=== PATIENT | female | born 1960 | race Caucasian/White ===

== ENCOUNTER → 2020-04-30 13:58 | Outpatient (CLI) | payer OTHER, SELFPAY ==
--- NOTE | ~2020-04-30 | MM_ITS ---
EXAMINATION: MM screening ben BI w maco HISTORY: Screening mammogram TECHNIQUE: Craniocaudal and mediolateral oblique 3-D tomosynthesis images were obtained and synthetic 2-D images were generated. CAD analysis was submitted and interpreted. COMPARISON: 02/07/2019, 12/28/2017, 12/23/2016 bilateral digital screening mammogram examinations 08/16/2013 diagnostic left digital mammogram and left breast ultrasound 08/09/2013 bilateral digital scr eening mammogram BREAST PARENCHYMAL COMPOSITION: The breasts are extremely dense, which lowers the sensitivity of mamm ography. FINDINGS: Stable mild granular asymmetry with convex to the at the upper anterior left fibroglandular margin on MLO view, stable since 08/16/2013, at which time the left diagnostic mammogram and ultrasoun d revealed no abnormality. There is no evidence of suspicious mass, calcification, or architectural d istortion to suggest malignancy in either breast. There has been no suspicious interval change. IMPRESSION: 1. No mammographic evidence of malignancy. 2. Recommend routine screening mammography in one year. BI-RADS Category 1: Negative Reviewed, dictated and finalized at location A. K SECRETARY
== END ==
PROVIDERS: Visit Provider Nurse Practitioner Obstetrics & Gynecology
DX: Z12.31 Encounter for screening mammogram for malignant neoplasm of breast (principal)
CPT/HCPCS: 77063; 77067

== ENCOUNTER → 2021-05-06 12:14 | Outpatient (CLI) | payer OTHER, SELFPAY ==
--- NOTE | ~2021-05-06 | DEXA_ITS ---
Bone Density Report Name: RAVINDER MASON Age: 61 Sex: Female Ethnicity: White Date of : 1960 Indication: osteopenia; prior fracture; postmenopausal Referring Provider: Meenu, Nancy Villagomez Study: Bone densitometry was performed. Exam Date: May 06, 2021 Accession number: [id number] Bone Density: Region BMD T-score Z-score Classification AP Spine (L1-L4) 0.736 -2.8 -1.5 Osteoporosis Femoral Neck (Left) 0.557 -2.6 -1.4 Osteoporosis Total Hip (Left) 0.697 -2.0 -1.1 Osteopenia Femoral Neck (Right) 0.528 -2.9 -1.6 Osteoporosis Total Hip (Right) 0.695 -2.0 -1.1 Osteopenia Total Hip Mean 0.696 -2.0 -1.1 Osteopenia World Health Organization criteria for BMD impression classify patients as: Normal (T-score at or above -1.0), Osteopenia (T-score between -1.0 and -2.5), or Osteoporosis (T-score at or below -2.5). 10-year Fracture Risk: FRAX not reported because: Some T-score for Spine Total or Hip Total or Femoral Neck at or below -2.5 Previous Exams: Region Exam Age BMD T-score BMD Change BMD Change Date g/cm2 vs Baseline vs Previous AP Spine(L1-L4) 05/06/2021 61 0.736 -2.8 -0.076* -0.076* 08/09/2013 53 0.813 -2.1 Total Hip(Left) 05/06/2021 61 0.697 -2.0 -0.057* -0.057* 08/09/2013 53 0.755 -1.5 Total Hip(Right) 05/06/2021 61 0.695 -2.0 -0.068* -0.068* 08/09/2013 53 0.763 -1.5 *Denotes significance at 95% confidence level, LSC for AP Spine = 0.022 g/cm2, LSC for Total Hip = 0.027 g/cm2 Clinical Information Provided by Patient: Has had a low trauma fracture Has used the following medications: Calcium, MTV Patient maximum height was 64 Menopause Age: 51 Drinks caffeinated beverages Onset of menses at age 17 Number of children 2 Impression: The patient has established osteoporosis, based on the Right Femoral Neck T-score and the existence of a prior fracture. The patient has risk factors, including: previous fracture. The BMD for the AP Spine(L1-L4) decreased, changing by -0.076 since the last DXA exam. The BMD for the Total Hip(Left) decreased, changing by -0.057 since the last DXA exam. The BMD for the Total Hip(Right) decreased, changing by -0.068 since the last DXA exam. Discussion: HIGH RISK OF FRACTURE. BONE DENSITY IS UNDESIRABLY LOW AT ONE OR MORE SKELETAL SITES, CONSISTENT WITH POSTMENOPAUSAL OSTEOPOROSIS. This patient's lowest T-score, in a patient who has previously fractured,
== END ==
PROVIDERS: Visit Provider Nurse Practitioner Obstetrics & Gynecology
DX: M81.0 Age-related osteoporosis without current pathological fracture (principal)
CPT/HCPCS: 77080

== ENCOUNTER → 2021-07-01 10:34 | Outpatient (CLI) | payer OTHER, SELFPAY ==
--- NOTE | ~2021-07-01 | MM_ITS ---
EXAMINATION: MM screening ben BI w maco HISTORY: Screening mammogram TECHNIQUE: Craniocaudal and mediolateral oblique 3-D tomosynthesis images were obtained and synthetic 2-D images were generated. CAD analysis was submitted and interpreted. COMPARISON: 04/30/2020, 02/07/2019, 12/28/2017, 12/23/2016 bilateral screening mammogram examinations 08/16/2013 diagnostic left mammogram and left breast ultrasound BREAST PARENCHYMAL COMPOSITION: The breasts are extremely dense, which lowers the sensitivity of mamm ography. FINDINGS: Stable approximately 9 mm convex density at the anterior fibroglandular margin in the upper left breast on MLO view, stable since 12/23/2016 and 08/16/2013, consistent with benign process. There is no evidence of suspicious mass, calcification, or architectural distortion to suggest malignancy i n either breast. There has been no suspicious interval change. IMPRESSION: 1. No mammographic evidence of malignancy. 2. Recommend routine screening mammography in one year. BI-RADS Category 2: Benign finding(s). Reviewed, dictated and finalized at location A.
== END ==
PROVIDERS: Visit Provider Nurse Practitioner Obstetrics & Gynecology
DX: Z12.31 Encounter for screening mammogram for malignant neoplasm of breast (principal)
CPT/HCPCS: 77063; 77067

== ENCOUNTER 2022-10-14 09:03 | Outpatient (CLI) | payer OTHER, SELFPAY ==
--- NOTE | 2022-10-14 11:15 | NEURO_ITS ---
Impression: # Complains of numbness of both lower extremities. # Normal Nerve Conduction Study. # Normal needle/EMG. # Clinical correlation recommended. Nerve Conduction Studies Anti Sensory Summary Table Stim Site NR Peak (ms) P-T Amp (?V) Site1 Site2 Delta-P (ms) Dist (cm) Des (m/s) Left Sup Fibular Anti Sensory (Ant Lat Mall) 14 cm 3.3 22.6 14 cm Ant Lat Mall 3.3 16.0 48 Right Sup Fibular Anti Sensory (Ant Lat Mall) 14 cm 3.6 11.8 14 cm Ant Lat Mall 3.6 16.0 44 Left Sural Anti Sensory (Lat Mall) Calf 3.8 22.2 Calf Lat Mall 3.8 16.0 42 Right Sural Anti Sensory (Lat Mall) Calf 3.3 7.7 Calf Lat Mall 3.3 16.0 48 Motor Summary Table Stim Site NR Onset (ms) O-P Amp (mV) Site1 Site2 Delta-0 (ms) Dist (cm) Des (m/s) Left Peroneal Motor (Vastus Med) Ankle 4.3 1.2 Popit Ankle 8.8 43.0 49 Popit 13.1 0.7 Right Peroneal Motor (Vastus Med) Ankle 4.5 2.0 Popit Ankle 6.7 37.0 55 Popit 11.2 1.9 Left Tibial Motor (Abd Shin Brev) Ankle 4.7 11.0 Knee Ankle 8.4 41.0 49 Knee 13.1 7.8 Right Tibial Motor (Abd Shin Brev) Ankle 4.8 7.3 Knee Ankle 8.6 40.0 47 Knee 13.4 5.3 F Wave Studies NR F-Lat (ms) L-R F-Lat (ms) Left Peroneal (Mrkrs) (EDB) 46.72 0.00 Right Peroneal (Mrkrs) (EDB) 46.72 0.00 Left Tibial (Mrkrs) (Abd Hallucis) 46.64 0.55 Right Tibial (Mrkrs) (Abd Hallucis) 47.20 0.55 EMG Side Muscle Nerve Root Ins Act Fibs Amp Dur Recrt Comment Right AntTibialis Dp Br Fibular L4-5 Nml Nml Nml Nml Nml Right Gastroc Tibial S1-2 Nml Nml Nml Nml Nml Right Fibularis Long Sup Br Fibular L5-S1 Nml Nml Nml Nml Nml Right Flex Dig Long Tibial L5-S2 Nml Nml Nml Nml Nml Right Ext Dig Brev Dp Br Fibular L5, S1 Nml Nml Nml Nml Nml Left AntTibialis Dp Br Fibular L4-5 Nml Nml Nml Nml Nml Left Gastroc Tibial S1-2 Nml Nml Nml Nml Nml Left Fibularis Long Sup Br Fibular L5-S1 Nml Nml Nml Nml Nml Left Flex Dig Long Tibial L5-S2 Nml Nml Nml Nml Nml Left Ext Dig Brev Dp Br Fibular L5, S1 Nml Nml Nml Nml Nml MTDD
== END 2022-10-14 09:04 | disposition home or self-care (01) ==
PROVIDERS: PCP Nurse Practitioner Family; Referring Provider Chiropractor; Visit Provider Nurse Practitioner Family
DX: R20.2 Paresthesia of skin (principal)
CPT/HCPCS: 95886; 95910

== ENCOUNTER → 2022-10-19 16:01 | Outpatient (CLI) | payer OTHER, SELFPAY ==
--- NOTE | ~2022-10-19 | MM_ITS ---
EXAMINATION: MM screening ben BI w maco HISTORY: Screening mammogram TECHNIQUE: Craniocaudal and mediolateral oblique 3-D tomosynthesis images were obtained and synthetic 2-D images were generated. CAD analysis was submitted and interpreted. COMPARISON: 07/01/2021, 04/30/2020, 02/07/2019 bilateral screening mammogram examinations BREAST PARENCHYMAL COMPOSITION: The breasts are extremely dense, which lowers the sensitivity of mamm ography. FINDINGS: There is no evidence of suspicious mass, calcification, or architectural distortion to sugg est malignancy in either breast. There has been no suspicious interval change. IMPRESSION: 1. No mammographic evidence of malignancy. 2. Recommend routine screening mammography in one year. BI-RADS Category 1: Negative Reviewed, dictated and finalized at location A.
== END ==
PROVIDERS: PCP Nurse Practitioner Obstetrics & Gynecology; Visit Provider Nurse Practitioner Obstetrics & Gynecology
DX: Z12.31 Encounter for screening mammogram for malignant neoplasm of breast (principal)
CPT/HCPCS: 77063; 77067

== ENCOUNTER 2023-12-03 15:20 | Outpatient (CLI) | payer OTHER, SELFPAY ==
--- NOTE | ~2023-12-03 | MM_ITS ---
EXAMINATION: MM screening ben BI w maco HISTORY: Screening TECHNIQUE: Craniocaudal and mediolateral oblique 3-D tomosynthesis images were obtained and synthetic 2-D images were generated. CAD analysis was submitted and interpreted. COMPARISON: Comparison to multiple prior studies sequentially, with oldest reviewed study dated 12/23. BREAST PARENCHYMAL COMPOSITION: Dense: The breasts are extremely dense, which lowers the sensitivity of mammography. FINDINGS: There is no evidence of suspicious mass, calcification, or architectural distortion to sugg est malignancy in either breast. There has been no suspicious interval change. IMPRESSION: 1. No mammographic evidence of malignancy. 2. Recommend routine screening mammography in one year. BI-RADS Category 1: Negative Reviewed, dictated and finalized at location B.
== END 2023-12-03 15:21 ==
PROVIDERS: PCP Nurse Practitioner; Visit Provider Nurse Practitioner
DX: Z12.31 Encounter for screening mammogram for malignant neoplasm of breast (principal)
CPT/HCPCS: 77063; 77067

== ENCOUNTER 2024-03-06 12:38 | Outpatient (CLI) | payer OTHER, SELFPAY ==
--- NOTE | ~2024-03-06 | DEXA_ITS ---
Bone Density Report Name: RAVINDER MASON Age: 64 Sex: Female Ethnicity: White Date of : 1960 Indication: postmenopausal; screening for osteoporosis; parental hip fracture; Referring Provider: SHARON, CARL Moreno Study: Bone densitometry was performed. Exam Date: March 06, 2024 Accession number: [id number] Bone Density: Region BMD T-score Z-score Classification AP Spine(L1-L4) 0.727 -2.9 -1.4 Osteoporosis Femoral Neck (Left) 0.561 -2.6 -1.2 Osteoporosis Total Hip (Left) 0.679 -2.2 -1.1 Osteopenia Femoral Neck (Right) 0.462 -3.5 -2.1 Osteoporosis Total Hip (Right) 0.614 -2.7 -1.6 Osteoporosis Total Hip Mean 0.647 -2.5 -1.4 Osteopenia World Health Organization criteria for BMD impression classify patients as: Normal (T-score at or above -1.0), Osteopenia (T-score between -1.0 and -2.5), or Osteoporosis (T-score at or below -2.5). 10-year Fracture Risk: FRAX not reported because: Some T-score for Spine Total or Hip Total or Femoral Neck at or below -2.5 Clinical Information Provided by Patient: Parent has had a hip fracture Patient maximum height was 64 Drinks caffeinated beverages Onset of menses at age 16 Number of children 2 Impression: The patient has osteoporosis, based on the Right Femoral Neck T-score. The patient has risk factors, including: parental hip fracture. Discussion: HIGH RISK OF FRACTURE. BONE DENSITY IS UNDESIRABLY LOW AT ONE OR MORE SKELETAL SITES, CONSISTENT WITH OSTEOPOROSIS. ALSO, BONE DENSITY IS LOWER THAN EXPECTED FOR AGE AND SEX AT ONE OR MORE SKELETAL SITES; RECOMMEND A DILIGENT SEARCH FOR SECONDARY CAUSES OF BONE LOSS. This patient's lowest T-score meets the World Health Organization's (WHO) criteria for osteoporosis at one or more sites (T-score -2.5 or below). In untreated patients, the risk of osteoporotic fracture increases approximately two-fold for each 1.0 SD decrease in T-score. Low bone density is not the only risk factor for fracture; also consider factors such as patient's age, frailty or poor health, risk of falling, risk of injury, previous osteoporotic fracture, family history of osteoporosis, cigarette smoking, low body weight, etc. Not everyone with low bone mineral density has osteoporosis; osteomalacia and other metabolic bone disorders should also be considered. Patients who have osteoporosis should be evaluated for specific diseases and conditions (secondary causes) that may cause or contribute to bone loss. The [place] [employer] (AACE) and National Osteoporosis Foundation (NOF) recommend pharmacologic intervention for all postmenopausal women whose T-score is in this range. Also, this patient's bone mineral density is below the range considered normal for healthy age-, sex-, and race-matched controls at least one site (Z-score -2.0 or below). This warrants careful evaluation for diseases and conditions that may contribute to accelerated bone loss. The patient should follow a healthful lifestyle (good nutrition with adequate calcium and vitamin D, and appropriate weight-bearing exercise). Follow-Up: Consider a repeat BMD and Vertebral Fracture Assessment (VFA) exam in 2 years or sooner if medically necessary, to reassess this patient's status. Reported by: JOEL on 03/06/2024 1:05:00 PM. Reviewed, dictated and finalized at location AFrankie SANDOVAL
== END 2024-03-06 12:39 | disposition home or self-care (01) ==
LOC: ANHIMG 12:40
PROVIDERS: PCP Nurse Practitioner; Visit Provider Nurse Practitioner
DX: M81.8 Other osteoporosis without current pathological fracture (principal); M85.89 Other specified disorders of bone density and structure, multiple sites
CPT/HCPCS: 77080